=== PATIENT | female | born 1965 | race Caucasian/White ===

== ENCOUNTER 2020-05-04 09:56 | Outpatient (REF) | payer BC, SELFPAY ==
[2020-05-04 11:16] LABS: MANUAL DIFF FLAG NO
[2020-05-04 11:17] LABS: Basophils Percent Auto 0.3 % (0-2); Eosinophils Absolute Auto 0.1 X10*3/uL (0.0-0.4); Eosinophils Percent Auto 1.4 % (0-4); Hematocrit 38.5 % (37-47); Hemoglobin 12.8 g/dl (12.0-16.0); Imm Gran Abs Auto 0.01 X10*3/uL (0.00-0.03); Imm Gran Pct Auto 0.2 % (0.0-0.4); Lymphocytes Absolute Auto 2.2 X10*3/uL (1.2-4.9); Lymphocytes Percent Auto 33.3 % (20-40); Mean Corpuscular HGB Conc 33.2 g/dl (31.0-35.0); Mean Corpuscular Hemoglobin 29.8 pg (27.0-33.0); Mean Corpuscular Volume 89.5 fL (80-98); Mean Platelet Volume 11.1 fL (9.4-12.3); Monocytes Absolute Auto 0.4 X10*3/uL (0.1-1.2); Monocytes Percent Auto 6.6 % (2-11); Neutrophils Absolute Auto 3.8 X10*3/uL (2.0-8.3); Neutrophils Percent Auto 58.2 % (45-73); Platelet Count 319 X10*3/uL (160-400); Red Cell Distribution Width 12.1 % (11.0-16.0); White Blood Count 6.5 X10*3/uL (4.8-10.8)
[2020-05-04 11:56] LABS: Alanine Aminotransferase 19 U/L (0-31); Albumin Level 4.6 g/dL (3.5-5.0); Alkaline Phosphatase 73 U/L (39-117); Anion Gap 13 (12-20); Aspartate Amino Transferase 19 U/L (5-31); Bilirubin Total 0.5 mg/dL (0.0-1.0); Blood Urea Nitrogen 13 mg/dL (9-16); Calcium 9.5 mg/dL (8.4-10.2); Carbon Dioxide 27 mmol/L (22-29); Chloride 103 mmol/L (96-108); Cholesterol 233 mg/dL; Estimated Glomerular Filt Rate > 60; Glucose Fasting 96 mg/dL (60-99); HDL Cholesterol 69 mg/dL; Iron 70 mcg/dL (30-160); LDL Cholesterol Calculated 147 mg/dl; Percent Iron Saturation 22 % (15-50); Potassium 4.6 mmol/l (3.3-5.1); Sodium 138 mmol/L (135-145); Total Iron Binding Capacity 323 mcg/dL (228-428); Total Protein 7.5 g/dL (6.5-8.0); Triglycerides 89 mg/dL; Unsaturated Iron Binding 253 ug/dL
[2020-05-04 12:04] LABS: Ferritin 77 ng/mL (10-250); Free T4 (Free Thyroxine) 1.47 ng/dL (0.71-1.85); Thyroid Stimulating Hormone 0.11 uIU/mL (0.32-4.0); Vitamin D 25-OH Total 30.8 ng/mL (>30)
[2020-05-04 12:50] LABS: Folate 11.5 ng/mL (> or = 4.0); Vitamin B12 403 pg/mL (200-900)
== END 2020-05-04 09:57 | disposition home or self-care (01) ==
LOC: HO.MANLDS 09:56
PROVIDERS: PCP Physician Assistant; Visit Provider Physician Assistant
DX: E03.9 Hypothyroidism, unspecified (principal); Z00.00 Encounter for general adult medical examination without abnormal findings; L60.3 Nail dystrophy; Z13.6 Encounter for screening for cardiovascular disorders
CPT/HCPCS: 36415; 80053; 80061; 82306; 82607; 82728; 82746; 83540; 84439; 84443; 85025

== ENCOUNTER 2021-02-14 13:56 | Outpatient (REF) | payer BC, SELFPAY ==
[2021-02-14 18:23] LABS: Free T4 (Free Thyroxine) 0.89 ng/dL (0.71-1.85); Thyroid Stimulating Hormone 12.23 uIU/mL (0.32-4.0)
== END 2021-02-14 13:57 | disposition home or self-care (01) ==
LOC: HO.MANLDS 13:56
PROVIDERS: PCP Physician Assistant; Visit Provider Physician Assistant
DX: E03.9 Hypothyroidism, unspecified (principal)
CPT/HCPCS: 36415; 84439; 84443

== ENCOUNTER 2022-03-01 15:28 | Outpatient (REF) | payer BC, SELFPAY ==
[2022-03-01 18:10] LABS: MANUAL DIFF FLAG NO
[2022-03-01 18:17] LABS: Basophils Absolute Auto 0.1 X10*3/uL (0.0-0.2); Basophils Percent Auto 0.5 % (0-2); Eosinophils Absolute Auto 0.2 X10*3/uL (0.0-0.4); Hematocrit 39.5 % (37.0-47.0); Hemoglobin 13.2 g/dl (12.0-16.0); Imm Gran Abs Auto 0.04 X10*3/uL (0.00-0.03); Imm Gran Pct Auto 0.4 % (0.0-0.4); Lymphocytes Absolute Auto 2.6 X10*3/uL (1.2-4.9); Lymphocytes Percent Auto 26.6 % (20-40); Mean Corpuscular HGB Conc 33.4 g/dl (31.0-35.0); Mean Corpuscular Hemoglobin 29.1 pg (27.0-33.0); Mean Corpuscular Volume 87.2 fL (80.0-98.0); Mean Platelet Volume 11.3 fL (9.4-12.3); Monocytes Absolute Auto 0.5 X10*3/uL (0.1-1.2); Monocytes Percent Auto 5.6 % (2-11); Neutrophils Absolute Auto 6.3 x10*3/uL (2.0-8.3); Neutrophils Percent Auto 64.9 % (45-73); Platelet Count 316 X10*3/uL (160-400); Red Blood Count 4.53 X10*6/uL (4.20-5.50); Red Cell Distribution Width 12.3 % (11.0-16.0); White Blood Count 9.7 X10*3/uL (4.8-10.8)
[2022-03-01 18:23] LABS: INTERNATIONAL NORM RATIO 0.9 (0.9-1.1); Prothrombin Time 10.8 SEC (10.0-13.1)
[2022-03-01 18:26] LABS: Partial Thromboplastin Time 35.6 SEC (26.0-36.4)
[2022-03-01 18:30] LABS: Iron 78 mcg/dL (30-160); Percent Iron Saturation 24 % (15-50); Total Iron Binding Capacity 327 mcg/dL (228-428); Unsaturated Iron Binding 249 ug/dL
[2022-03-01 18:51] LABS: Ferritin 95 ng/mL (10-250)
[2022-03-04 22:37] LABS: Protein C Activity 178 % normal (70-180); Protein S Activity rflx Tot&Fr 95 % normal (60-140)
[2022-03-06 11:46] LABS: Von Willebrand Factor Antigen 98 % (50-217)
== END 2022-03-01 15:29 | disposition home or self-care (01) ==
LOC: HO.MANLDS 15:28
PROVIDERS: Visit Provider Physician Assistant
DX: Z78.9 Other specified health status (principal)
CPT/HCPCS: 36415; 82728; 83540; 85025; 85246; 85302; 85303; 85305; 85306; 85610; 85730

== ENCOUNTER 2024-11-13 11:09 | Day surgery (SDC) | payer BC, SELFPAY ==
[2024-11-11 15:49] VITALS: BMI 24.8
--- OUTSIDE RECORDS SUMMARY | 2024-11-12 17:00 | XMS_ITS | Clinical Summary ---
Author Organization [facility] Address [address] [place] [address] Care Team Providers Care Audio/Video Engineer Name Role Phone Chandler Kahn Primary Care Provider [phone] Allergies Active Allergy Reactions Criticality Noted Date Comments Sulfate 07/05/2017 Medications Levothyroxine Sodium 88 MCG Cap 1 CAPSULE DAILY Active traZODone HCl (DESYREL) 50 MG tablet Take 50 mg by mouth every night. Active Frovatriptan Succinate (FROVA) 2.5 MG tablet May repeat in 2 hours if unresolved. Do not exceed 7.5 mg in 24 hours.. 9 tablet 5 11/14/2023 Active Active Problems Problem Noted Date Diagnosed Date Pain in both feet 04/04/2021 Overview (11/09/2022): Last Assessment & Plan: Well fitting, supportive shoes. Avoid prolonged standing without changing position, avoid falls, injuries, overuse. Gentle, regular exercise routine after warm packs or warm foot spa. X-rays requested to make sure that there are no additional abnormalities of concern. Pain of toe of right foot 10/04/2020 Overview (11/09/2022): Last Assessment & Plan: Meloxicam 15 mg Take one pill PO daily with food. Primary osteoarthritis of both hands 09/21/2020 Overview (11/09/2022): Last Assessment & Plan: Joint protection, energy conservation. Gentle, regular exercise routine. Avoid falls, injuries, overuse. Splinting, assistive devices as needed and educated by OT. May need to consider another trial if interested She may benefit from topical cream such as Arnica, Biofreeze, Aspercreme versus medicated patches such as salonpas, icy hot patch 2-3 times daily and if necessary at bedtime x 3 weeks. Acute pain of right shoulder 04/08/2019 Overview (11/09/2022): Last Assessment & Plan: Trial of Meloxicam 15 mg Take one pill PO with food daily. Neck pain 04/08/2019 Other specified hypothyroidism 04/08/2019 Pain in both hands 04/08/2019 Primary osteoarthritis of left foot 04/08/2019 Overview (11/09/2022): Last Assessment & Plan: Trial of Meloxicam 15 mg Take one pill PO with food daily. Stable on exam today. Social History Tobacco Use Types Packs/Day Years Used Date Smoking Tobacco: Never Smokeless Tobacco: Never Comments:marijuana on occasi on Intimate Partner Violence Answer Date R ecorded Fear of Current or Ex-Partner Not on file Emotionally Abused Not on file 01/28/2023 Physically Abused Not on file 01/28/2023 Sexually Abused Not on file 01/28/2023 Feel Safe at Home Not on file 01/28/2023 Comments Unknown Sex and Gender Information Value Date Recorded Sex Assigned at Not on file Legal Sex Female 1:35 PM EST Gender Identity Not on file Sexual Orientation Not on file Last Filed Vital Signs Vital Sign Reading Time Taken Comments Blood Pressure 106/64 11/09/2022 8:37 AM EDT Pulse 55 11/09/2022 8:37 AM EDT Temperature - - Respiratory Rate - - Oxygen Saturation - - Inhaled Oxygen Concentration - - Weight 56.7 kg (125 lb) 10/04/2017 10:55 AM EDT Height - - Body Mass Index - - Plan of Treatment Health Maintenance Due Date Last Done Comments Hepatitis C Screening 1967 Pap Smear 1983 DTaP/Tdap/Td (1 - Tdap) 1985 Hep B (1 of 3 - 19+ 3-dose series) 1986 Mammogram/Breast Imaging 2007 Colon Cancer Screening 2012 Pneumococcal 50+ years (1 of 1 - PCV) 2017 Zoster (Shingrix) (1 of 2) 2017 COVID-19 Vaccine (1 - 2023-2 5 season) 2024 Influenza (Season Ended) 2025 HPV Vaccine Aged Out No longer eligi ble based on patient's age to complete this topic Hep A Aged Out No longer eligi ble based on patient's age to complete this topic Hib Aged Out No longer eligi ble based on patient's age to complete this topic Meningococcal ACWY Aged Out No longer eligible based on patient's age to complete this topic Insurance BCBS FEE FOR SERVICE PPO Care Teams Audio/Video Engineer Relationship Specialty Start Date End Date Chandler Kahn [facility] [address] [place] [id number] PCP - General Internal Medicine 06/25/17
--- NOTE | ~2024-11-13 | FL_ITS ---
EXAMINATION: FLUOROSCOPY GUIDANCE FOR NEEDLE PLACEMENT CLINICAL INFORMATION: 1st metatarsal fusion right COMPARISON: None available. TECHNIQUE: AP and lateral views provided for fluoroscopic guidance procedure. FINDINGS: Metallic hardware plate placed at the first metatarsophalangeal joint and secured with proximal and distal screws. FLUOROSCOPY TIME: No documented. DOSE AREA PRODUCT: No documented. uGy-m2 (microgray-meter squared) FL/FL guidance in OR IMPRESSION: Nondiagnostic fluoroscopy guidance during a procedure. Electronically signed by: Brendon Milian MD 11/14/2024 07:12 AM EDT
[2024-11-13 12:03] VITALS: BP 126/67; PULSE 58; RESP 14; TEMP 36.7; O2SAT 94; BMI 24.2
[2024-11-13] MEDS: Lactated Ringers 1,000 ML 80 ML IVCONT (12:22)
--- NOTE | 2024-11-13 12:48 | MHC.SHP ---
Pre-Procedural Eval Section A - 24 Hr Update-Section A only Date of Service: 11/13/24 The patient is an INPATIENT: No Changes since office visit: No Cold of Flu in the past 2 weeks, No New Medical Problems, No Changes in Medication and No Patient answered all questions The patient has been examined within 24 hours of the surgical procedure. The History & Physical has been completed within 30 days and I have reviewed it.: Yes Section B - Complete if H&P > 30 days Chief Complaint: Hallux rigidus, right foot Allergies: Allergies Allergy/AdvReac Type Severity Reaction Status Date / Time Sulfa (Sulfonamide Allergy Unknown Hives Verified 11/13/24 12:11 Antibiotics) Plan I have reviewed the history and physical and performed a pertinent physical examination on my patient. No changes have occurred unless specified. Time Spent With Patient Time: Total time managing care of this patient today ____ minutes.
--- NOTE | 2024-11-13 12:59 | P.CONAN_ITS ---
HPI - Anesthesia Eval Consult details Narrative: 59 yo F presenting for right bunionectomy (1st metatarsal fusion) [facility] Past Medical History Medical History Osteoarthritis Easy bruising Anxiety and depression Hypothyroidism Migraines Arthritis Family History Family history of problems with anesthesia: No Surgical History Surgical History Hx of appendectomy History of Problems with Anesthesia: No Social History Social History Are you a primary pediatric acute care unit nurse to a significant other at home: No Do you presently have visiting nurse or other home services: No Patient Tobacco Use Status: Never used Tobacco Use of substances other than those prescribed or required for medical reasons: Yes Substance Use Frequency: Weekly Have you been hit, kicked, punched, or otherwise hurt by someone within the past year? If so, by whom?: No Are you DNR?: No Advance Directives: No Advance Directives Information Provided: Yes Patient : No Poor oral hygiene: No Meds Allergies Allergy/AdvReac Type Severity Reaction Status Date / Time Sulfa (Sulfonamide Allergy Unknown Hives Verified 11/13/24 12:11 Antibiotics) Active Medications: Current Medications Fentanyl (Fentanyl Citrate/Pf 100 Mcg/2 Ml Vial) 25 mcg IVPUSH Q5M PRN PRN Reason: Pain, Moderate to Severe (Pain Scale 4-10) Stop: 11/13/24 18:57 Haloperidol Lactate (Haloperidol Lactate 5 Mg/Ml Vial) 1 mg IVPUSH ONCE PRN PRN Reason: intractable nausea Stop: 11/13/24 18:57 Lactated Ringer's (Lr) 1,000 mls @ 80 mls/hr IVCONT .[id number] DAVID Last Admin: 11/13/24 12:22 Dose: 80 mls/hr Cefazolin Sodium/Dextrose (Ancef) 2 gm in 50 mls @ 100 mls/hr IV PREOP ONE Stop: 11/13/24 13:15 Naloxone HCl (Naloxone Hcl 0.4 Mg/Ml Vial) 0.04 mg IVPUSH Q5M PRN PRN Reason: Excessive sedation or RR < 8 Home Medications ?Medication ?Instructions ?Recorded ?Confirmed ?Last Taken ?Type calcium carbonate 500 mg PO BID 11/11/2411/11 Unknown History frovatriptan 2.5 mg tablet 2.5 mg PO DAILY MRX1 PRN He adache 11/11/24 11/11/24 Unknown History levothyroxine 75 mcg tablet 75 mcg PO DAILY 11/11/24 0 11/11/24 Unknown History riboflavin (vitamin B2) 11/11/24 11/11/24 Unknown H istory terbinafine HCl 250 mg tablet 250 mg PO DAILY 11/11/24 11/11/24 Unknown History trazodone 50 mg tablet 50 mg PO DAILY 11/11/2410/26 Unknown History Exam Exam Date and Time: 11/13/24 1255 Height,Weight and Vital Signs: Height 5 ft 1 in Weight 58 kg Last Vital Signs Temp 98.0 F 11/13/24 12:03 Pulse 58 11/13/24 12:03 Resp 14 11/13/24 12:03 BP 126/67 11/13/24 12:03 Pulse Ox 94 11/13/24 12:03 O2 Del Method Room Air 11/13/24 12:03 Airway Mallampati Class: I TM Dist: >3cm Neck ROM: Full Loose/Missing/Broken Teeth: No (patient denies any loose or broken teeth) Heart: S1S2 Lungs: CTAB Assessment and Plan Assessment Anesthesia Assessment: Anesthesia Plan Discussed and Chart Reviewed Final Anesthetic Review Family History of Problems with Anesthesia: No History of Problems with Anesthesia: No NPO: Yes ASA Class: II Final Preanesthetic Review: No Changes in Pt Med Stat, Meds/Allgs Chart Reviewed, Consent Obtained/Reviewed and Anes Risks/Benef Reviewed Patient Risk: Low Procedure Risk: Low Anesthetic Plan Anesthetic Plan: MAC: and Agree w/ Assess. and Plan Disposition: Standard PACU
[2024-11-13 14:36] VITALS: BP 113/62; PULSE 53; RESP 16; TEMP 36.4; O2SAT 97
--- NOTE | 2024-11-13 14:40 | PM.OP ---
Brief Operative Note Date of Service: 11/13/24 Pre-op diagnosis: Hallux Rigidus Right Post-op diagnosis: same Procedure: Right 1st MPJ Fusion Implants: [employer] 1st MPJ fusion plate from [place] Surgeon: Kathy Smith Anesthesia: MAC and local Was an Automotive Fleet Supervisor used for this Procedure?: Yes Automotive Fleet Supervisor: Leah Zuniga Estimated blood loss (mL): 1 Tourniquet time (min): 60 Pathology: none sent Condition: stable Disposition: PACU Complications (if any): None
[2024-11-13 14:51] VITALS: BP 110/71; PULSE 51; RESP 16; O2SAT 97
[2024-11-13 15:05] VITALS: BP 126/81; PULSE 53; RESP 16; TEMP 36.2; O2SAT 98
[2024-11-13 15:20] VITALS: BP 137/72; PULSE 51; RESP 16; TEMP 36.2; O2SAT 98
--- NOTE | 2024-11-14 00:47 | OP_ITS ---
DATE OF SERVICE: 11/13/2024 SURGEON: Kathy Smith DPM PREOPERATIVE DIAGNOSIS: Hallux rigidus, right foot. POSTOPERATIVE DIAGNOSIS: Hallux rigidus. PROCEDURE PERFORMED: Right first metatarsophalangeal joint arthrodesis. ESTIMATED BLOOD LOSS: Less than 1 cc. COMPLICATIONS: None. ANESTHESIA: Monitored anesthetic care with local consisting preoperatively of a 1:1 mixture of 0.5% Marcaine plain and 1% lidocaine plain, 20 cc and postoperatively 5 cc of 0.5% Marcaine plain and 1 cc of dexamethasone. ASSISTANTS:Leah Zuniga DPM SPECIMENS: None HEMOSTASIS: Pneumatic ankle tourniquet set at 215 mmHg for 60 minutes. HARDWARE: [employer] first MPJ fusion plate. INDICATIONS FOR SURGERY: The patient had painful arthritic first metatarsophalangeal joint noted to the right foot for several years. The patient tried alternative treatments including change in shoes, orthotics, rest, antiinflammatories and failed conservative therapies. The above-mentioned surgery was discussed in detail with the patient including risks, benefits, and possible complications. No guarantees were given and written and oral informed consent was obtained. DESCRIPTION OF PROCEDURE: The patient was brought to the operating room, placed on the operating table in the supine position. She was given 2 g of Ancef as a prophylactic preoperative antibiotic. The right foot was anesthetized and was scrubbed, prepped, and draped in a sterile manner. Attention was directed to the right foot, which was exsanguinated and a pneumatic ankle tourniquet was inflated. Attention was directed to the dorsal aspect of the first metatarsophalangeal joint, where an approximately 5 cm incision was made. Incision was deepened down through subcutaneous tissue with great care being taken to retract vital, neuro and vascular structures and all bleeders were cauterized as necessary. A capsulotomy was made medial and parallel to the extensor tendon and the soft tissues were freed about the head of the first metatarsal and base of the proximal phalanx. There was noted to be significant degeneration and irregularities of the dorsal and medial aspect of the first metatarsal head, which was resected with power instrumentation and passed the operative site. The joint space was freed using a McGlamry elevator. The cartilage of the first metatarsal head and base of proximal phalanx was evaluated. There was noted to be greater than 85% cartilage degeneration. Using a power rasp and curette, the cartilaginous surfaces of the base of the proximal phalanx and head of the first metatarsal were removed in total. All bony prominences were power rasped smooth. The joint space was left in a cup and cone fashion and once all cartilaginous surfaces were removed, the first metatarsal head and base of proximal phalanx were fenestrated with a 0.062 K-wire. The wound was irrigated with normal sterile saline. The toe was placed in a rectus position and was temporarily fixated with a 0.062 K-wire. The crossAcuFocuss DynaForce MTP plate with 18 mm clip and 5 degrees of dorsiflexion was then placed overlying the dorsal joint. It was held in place with 2 BB-Taks and the holes for the staple were drilled and an 18 x 18 x 14 mm staple was placed across the osteotomy site within the plate and was tamped into place. All guidewires and BB-Taks were removed and the plate was then drilled and filled under standard technique with the following screws. The most proximal screw hole, a 16 mm nonlocking screw 3-0 was inserted. The second most proximal, an 18 mm 3-0 locking screw; most distal, a 3-0 10 mm locking screw and the second most distal, a 12 mm 3-0 locking screw. All screws were tightened. The most proximal nonlocking screw was then removed and replaced with a 16mm locking screw. The plate was sitting flush to the toe. The wound was then irrigated again with normal sterile saline. The capsular structures were reapproximated with 3-0 Vicryl in an interrupted suture technique. The subcutaneous tissues were reapproximated with 4-0 Vicryl in an interrupted suture technique and the skin was reapproximated with running suture of 4-0 Monocryl and interrupted suture of 4-0 nylon. A postoperative injection of 0.5% Marcaine plain and 1 cc of dexamethasone was administered. The foot was then dressed with Steri-Strips, 4x4s, fluffs, Nenita, cast padding. The pneumatic ankle tourniquet was deflated after 60 minutes. Prompt capillary refill was noted to all 5 digits. The patient tolerated the procedure and anesthesia well. She was transferred to the recovery room with vital signs stable and Vascular status at preoperative levels. Following a period of postoperative recovery, the patient will be discharged home with written and oral postoperative instructions and the patient will follow up in my office for all postoperative followup care. Kathy Smith DPM LP/JACLYN / [id number] MTDD
== END 2024-11-13 15:30 | disposition home or self-care (01) ==
PROVIDERS: PCP Internal Medicine; Visit Provider Podiatrist
PROC: (CPT 28292; principal; 2024-11-13 13:00)
DX: M20.21 Hallux rigidus, right foot (principal); M79.671 Pain in right foot; M19.071 Primary osteoarthritis, right ankle and foot; M25.571 Pain in right ankle and joints of right foot; M77.51 Other enthesopathy of right foot and ankle; M20.11 Hallux valgus (acquired), right foot; G43.909 Migraine, unspecified, not intractable, without status migrainosus; E03.9 Hypothyroidism, unspecified; Z79.899 Other long term (current) drug therapy
CPT/HCPCS: 28750; C1713; J0665; J0690; J1100; J2003; J2250; J2704; J3010